=== PATIENT | female | born 1970 | race Caucasian/White ===

== ENCOUNTER 2019-11-30 08:10 | Emergency (ER) | payer OTHER ==
[~2019-11-30] VITALS: Ht 154.9 cm; Wt 62.1 kg
[2019-11-30] MEDS ORDERED: TOPROL XL25 M1 (08:23)
[2019-11-30] MEDS ORDERED: OMEPRAZOLE40 MG (08:23)
[2019-11-30] MEDS ORDERED: TAGAMET HB200 MG (08:24)
[2019-11-30] MEDS ORDERED: LEVSIN0.125 MG (08:25)
== END 2019-11-30 12:51 | disposition home or self-care (01) ==
LOC: ER 08:10
DX: R10.13 Epigastric pain (principal)

== ENCOUNTER 2019-12-17 16:48 | Emergency (ER) | payer OTHER ==
[~2019-12-17] VITALS: Ht 154.9 cm; Wt 61.7 kg
[~2019-12-17 16:48] MED LIST: LEVSIN0.125 MG; OMEPRAZOLE40 MG; TAGAMET HB200 MG; TOPROL XL25 M1
[2019-12-17] MEDS ORDERED: NEXIUM40 M1 (17:37)
[2019-12-17] MEDS ORDERED: CARAFATE1 GM/10 ML (17:38)
== END 2019-12-17 22:43 | disposition home or self-care (01) ==
LOC: ER 16:48
DX: R10.84 Generalized abdominal pain (principal); Z03.818 Encounter for observation for suspected exposure to other biological agents ruled out

== ENCOUNTER → 2025-03-03 | Emergency (ER) | payer OTHER ==
[~2025-03-03] VITALS: Ht 154.9 cm; Wt 64.4 kg
[~2025-03-03] MED LIST changes: +ATACAND4 MG PO; +BACLOFEN10 MG PO; +CARAFATE1 GM/10 ML; +CEFTRIAXONE SODIUM 1,000 MG VIAL IM ONE; +CEFTRIAXONE SODIUM 1,000 MG VIAL ONE; +DICLOFENAC POTA50 MG PO; +MACROBID 100 M100 MG PO; +NEXIUM40 M1; +PYRIDIUM100 MG PO; +TORSEMIDE10 MG PO
[2025-03-03 20:50] LABS: BASO % 0.5 % (0.1-1.2); EOS # 0.09 (0.04-0.54); EOS % 0.9 % (0.7-7.0); LYMPH # 1.32 (1.18-3.74); LYMPH % 13.3 % (19.3-53.1); MEAN PLATELET VOLUME 10.40 fl (9.4-12.4); MONO # 0.67 (0.24-0.82); MONO % 6.8 % (4.7-12.5); NEUT # 7.74 (1.56-6.13); NEUT % 78.3 % (34.0-71.1); RED CELL DISTRIBUTION WIDTH 12.6 % (11.6-14.4)
[2025-03-03 21:06] LABS: URINE APPEARANCE Turbid; URINE BILIRRUBIN Negative (NEGATIVE); URINE BLOOD Large; URINE COLOR Yellow; URINE GLUCOSE Negative (NEGATIVE); URINE KETONE 15 (NEGATIVE); URINE LEUKOCYTE Large; URINE NITRATE Negative; URINE PROTEIN 30 (NEGATIVE); URINE UROBILINOGEN 0.2 E.U./dl
[2025-03-03 21:09] LABS: INR 1.04
[2025-03-03 21:10] LABS: URINE CAST 1.98 uL (0.0-1.40); URINE EPITHELIAL CELLS 16.0 uL (0.0-38.8); URINE RBC 11.0 uL (0.0-20.8)
[2025-03-03 21:14] LABS: ALT/SGPT 58.0 U/L (12-78); AST/SGOT 75.0 U/L (15-37); BILIRUBIN TOTAL 0.64 mg/dL (0.3-1.2); BUN CREA RATIO 15.0 (7.0-25.0); CREATININE SERUM 0.65 mg/dL (0.55-1.02); GFR 94.99; GLOBULINA 3.5 G/DL (2.4-3.5); GLUCOSE FASTING 95.0 mg/dL (65-100); OSMOLALITY SERUM 282.0 MOSM/KG (275-295)
[2025-03-03 21:35] LABS: URINE WBC > 5548.3 uL (0.0-23.2)
== END ==
LOC: ER 15:28
PROVIDERS: General Practice
DX: N30.90 Cystitis, unspecified without hematuria (principal); R35.0 Frequency of micturition; R30.0 Dysuria; R31.9 Hematuria, unspecified; I10 Essential (primary) hypertension